=== PATIENT | male | born 1965 | race Caucasian/White ===

== ENCOUNTER 2017-11-24 13:22 | Emergency (ER) | payer OTHER ==
[~2017-11-24] VITALS: Ht 175.3 cm; Wt 102.6 kg
[~2017-11-24 13:22] MED LIST: AMLODIPINE BESYL5 MG PO; ASPIRIN325 MG PO; ATORVASTATIN CA40 MG PO; CIPROFLOXACIN500 M1 PO; DILAUDID2 MG PO; Ocean Nasal 0.65% BOTH NARES; PANTOPRAZOLE SO40 MG PO; PREVACID30 MG PO; SYNTHROID112 MCG PO; SYNTHROID75 MCG PO; TRAMADOL HCL50 MG PO
[2017-11-24] MEDS ORDERED: BACTROBAN OINTM22 GM TP (14:49)
[2017-11-24] MEDS ORDERED: BACTRIM,SEPT1 TABLET PO (15:18)
[2017-11-24 15:30] VITALS: BP 120/89
== END 2017-11-24 15:32 | disposition home or self-care (01) ==
LOC: EME 13:22
DX: S61.412A Laceration without foreign body of left hand, initial encounter (principal); W27.8XXA Contact with other nonpowered hand tool, initial encounter; Z88.0 Allergy status to penicillin
CPT/HCPCS: 73130; 99281; 99284